=== PATIENT | male | born 1945 | race Caucasian/White ===

== ENCOUNTER → 2022-08-10 | Outpatient (CLI) | payer MEDICARE | LOC: LAB SHORT 10:58 → PLD 10:58 | DX: D48.5 Neoplasm of uncertain behavior of skin (principal) | CPT/HCPCS: 88305 ==

== ENCOUNTER 2024-07-03 06:43 | Emergency (ER) | payer OTHER ==
[~2024-07-03] VITALS: Ht 172.7 cm; Wt 83.9 kg
[2024-07-03 07:40] VITALS: BP 146/90
[2024-07-03] MEDS ORDERED: Oxymetazoline 0.05% Nasal Relief Spray 15mL BTL TOP ONE (08:00)
== END 2024-07-03 10:12 | disposition home or self-care (01) ==
LOC: ER 06:43
DX: R04.0 Epistaxis (principal); I10 Essential (primary) hypertension; Z91.013 Allergy to seafood; Z88.8 Allergy status to other drugs, medicaments and biological substances
CPT/HCPCS: 30901; 99283-25; A9270